=== PATIENT | female | born 1995 ===

== ENCOUNTER 2016-11-19 21:32 | Emergency (ER) | payer OTHER ==
[2016-11-19 21:38] VITALS: BP 124/61; PULSE 76; RESP 18; TEMP 98.7; O2SAT 100
--- NOTE | 2016-11-19 22:25 | ED PDOC ---
HPI: General Adult Time Seen by Provider: 11/19/16 21:49 Chief Complaint (Nursing): GI Problem Chief Complaint (Provider): Nausea, Poor Appetite History Per: Patient History/Exam Limitations: no limitations Onset/Duration Of Symptoms: Days (x3) Have you had recent travel within the past 21 days to any of the following countries: [place], [place], [place] or [place]?: No Severity: Moderate Additional Complaint(s): Brit Raines is a 21 year old female, with A1 (at age 16) with no pertinent past medical history, who presents to the ED on 11/19/16 with complaints of both moderate nausea and decreased appetite that she has experienced x3 days. Denies vaginal bleeding or any additional physical complaints at this time. Of note, when patient asked if she may be , she reports not having given it much thought. LMP is reported as of late September 2016 and, though patient notes that her periods are irregular at baseline, she admits that in hindsight she should have taken a home test prior to coming to the ED. PMD: non CPH Past Medical History Reviewed: Historical Data, Nursing Documentation, Vital Signs Vital Signs: Last Vital Signs Temp 98.7 F 11/19/16 21:35 Pulse 76 11/19/16 21:35 Resp 18 11/19/16 21:35 BP 124/61 11/19/16 21:35 Pulse Ox 100 11/19/16 22:48 - Medical History PMH: No Chronic Diseases - Surgical History Other surgeries: b/l ankle surgery - Family History Family History: States: Unknown Family Hx - Social History Current smoker - smoking cessation education provided: No Alcohol: Social Drugs: Cannabis - Home Medications Home Medications: Ambulatory Orders Medication Instructions Recorded Dicyclomine [Bentyl] 20 mg PO TID #30 tab 08/14/16 Ondansetron [Zofran] 4 mg PO Q8H #12 tab 08/14/16 - Allergies Allergies/Adverse Reactions: Allergies Allergy/AdvReac Type Severity Reaction Status Date / Time No Known Allergies Allergy Verified 08/14/16 03:55 Review of Systems Gastrointestinal: Positive for: Nausea, Other (decreased appetite) Genitourinary Female: Negative for: Vaginal Bleeding Physical Exam - Reviewed Nursing Documentation Reviewed: Yes Vital Signs Reviewed: Yes - Physical Exam Appears: Positive for: Non-toxic, No Acute Distress Head Exam: Positive for: ATRAUMATIC, NORMOCEPHALIC Skin: Positive for: Normal Color, Warm, Dry Eye Exam: Positive for: Normal appearance, PERRL ENT: Positive for: Normal ENT Inspection Cardiovascular/Chest: Positive for: Regular Rate, Rhythm. Negative for: Murmur Respiratory: Positive for: Normal Breath Sounds. Negative for: Respiratory Distress Gastrointestinal/Abdominal: Positive for: Normal Exam, Soft. Negative for: Tenderness Back: Positive for: Normal Inspection Neurologic/Psych: Positive for: Alert, Oriented - Laboratory Results Urine POC: Positive Urine dip results: Negative for: Leukocyte Esterase, Blood, Nitrate, Ketones, Glucose, Bilirubin, Protein - ECG O2 Sat by Pulse Oximetry: 100 (RA) Pulse Ox Interpretation: Normal Medical Decision Making Medical Decision Makin:49 Initial Impression: 21 year old female with nausea and decreased appetite; suspected Initial Plan: * Upreg * Udip Upreg is (+), patient has been advised of results. Udip is negative. 22:08 Patient is medically stable and requires no further evaluation/treatment in the ED at this time, will discharge home. Counseling provided regarding diagnosis, with patient reporting that she already has an existing appointment with her OB/ [facility] for next week. Instructed to follow up as scheduled. There is agreement to discharge plan, return for acute worsening of symptoms. Clinical Impression: early Scribe Attestation: Documented by Geovanna Ohara, acting as a scribe for Jeromy Capps MD. Provider Scribe Attestation: All medical record entries made by the Scribe were at my direction and personally dictated by me. I have reviewed the chart and agree that the record accurately reflects my personal performance of the history, physical exam, medical decision making, and the department course for this patient. I have also personally directed, reviewed, and agree with the discharge instructions and disposition. Disposition - Clinical Impression Clinical Impression: - Patient ED Disposition Is Patient to be Admitted: No Counseled Patient/Family Regarding: Studies Performed, Diagnosis, Need For Followup - Disposition [facility] Disposition: Routine/Home Disposition Time: 22:08 Condition: STABLE Instructions: Morning Sickness (ED), (ED)
== END 2016-11-19 22:49 | disposition home or self-care (01) ==
LOC: H.ER 21:32
DX: Z33.1 Pregnant state, incidental (principal); R11.0 Nausea

== ENCOUNTER 2016-12-01 20:08 | Emergency (ER) | payer OTHER ==
[2016-12-01 20:30] VITALS: BP 103/59; PULSE 50; RESP 18; TEMP 98; O2SAT 100
[2016-12-01] MEDS ORDERED: Sodium Chloride 0.9% 1,000 ML IV STA (21:09)
[2016-12-01] MEDS ORDERED: DiphenhydrAMINE 50 mg/ml Inj IV STA (21:09)
--- NOTE | 2016-12-01 21:21 | ED PDOC ---
HPI: Headache Time Seen by Provider: 12/01/16 20:53 Chief Complaint (Nursing): Headache Chief Complaint (Provider): headache History Per: Patient History/Exam Limitations: no limitations Onset/Duration Of Symptoms: Hrs (x 7 ) Current Symptoms Are (Timing): Still Present Additional Complaint(s): Brit Raines is a 21 year female, with a previous medical history of recurring migraines, who presents to the ED with complaints of a headache which started approximately 7 hours prior to arrival; further described as consistent with previous migraines. Patient reports one episode of non-bloody vomiting but otherwise denies any vision changes. She has medicated with Tylenol and Advil with no relief. Patient vomited x 1 at home prior to arrival and feels nauseous upon arrival. She denies any vision changes. Patient states this is not the worst headache of her life. Past Medical History Reviewed: Historical Data, Nursing Documentation, Vital Signs Vital Signs: Last Vital Signs Temp 98.0 F 12/01/16 20:28 Pulse 50 L 12/01/16 20:28 Resp 18 12/01/16 20:28 BP 103/59 L 12/01/16 20:28 Pulse Ox 100 12/01/16 20:28 - Medical History PMH: Migraine - Surgical History Other surgeries: bilateral ankle surgery, elective last week - Family History Family History: States: No Known Family Hx - Living Arrangements Living Arrangements: With Family - Social History Current smoker - smoking cessation education provided: No Alcohol: None Drugs: Cannabis - Home Medications Home Medications: Ambulatory Orders Medication Instructions Recorded Dicyclomine [Bentyl] 20 mg PO TID #30 tab 08/14/16 Ondansetron [Zofran] 4 mg PO Q8H #12 tab 08/14/16 Metoclopramide [Reglan] 10 mg PO Q6 PRN #20 tab 12/01/16 Naproxen [Naprosyn] 500 mg PO BID #20 tab 12/01/16 - Allergies Allergies/Adverse Reactions: Allergies Allergy/AdvReac Type Severity Reaction Status Date / Time No Known Allergies Allergy Verified 12/01/16 20:30 Review of Systems ROS Statement: Except As Marked, All Systems Reviewed And Found Negative Constitutional: Negative for: Fever Eyes: Negative for: Vision Change Cardiovascular: Negative for: Light Headedness Gastrointestinal: Positive for: Nausea, Vomiting. Negative for: Abdominal Pain Neurological: Positive for: Headache. Negative for: Weakness, Numbness, Confusion, Seizures, Altered Mental Status, Dizziness Physical Exam - Reviewed Nursing Documentation Reviewed: Yes Vital Signs Reviewed: Yes - Physical Exam Appears: Positive for: Well, Non-toxic, No Acute Distress Head Exam: Positive for: ATRAUMATIC, NORMAL INSPECTION Skin: Negative for: Rash Eye Exam: Positive for: Normal appearance, PERRL. Negative for: Nystagmus, Periorbital swelling, Periorbital tenderness, Conjunctival injection ENT: Positive for: Normal ENT Inspection Neck: Positive for: Painless ROM Cardiovascular/Chest: Positive for: Regular Rate, Rhythm Respiratory: Positive for: CNT, Normal Breath Sounds Extremity: Positive for: Normal ROM. Negative for: Pedal Edema Neurologic/Psych: Positive for: Alert, Oriented, Gait (steady) - Laboratory Results Urine POC: Positive (patient has elective about 5 days ago, false positive) - ECG O2 Sat by Pulse Oximetry: 100 (RA) Pulse Ox Interpretation: Normal Medical Decision Making Medical Decision Making: Impression: Migraine headache Initial Plan: * urine * toradol 30 mg IV * reglan 10 mg IV * benadryl 25 mg IV * IV NS 1,000 ml at 1,000 ml/hr * reevaluation False positive : patient had elective last week. Patient feels much better after medications were administered. Nausea and headache have resolved. Patient tolerated water in ED with no further emesis. Prescriptions given for Naprosyn and Reglan. Patient was advised to follow-up in one to 2 days with primary care doctor. Scribe Attestation: Documented by Angelia Allan, acting as a scribe for Diya Boyle PA-C. Provider Scribe Attestation: All medical record entries made by the Scribe were at my direction and personally dictated by me. I have reviewed the chart and agree that the record accurately reflects my personal performance of the history, physical exam, medical decision making, and the department course for this patient. I have also personally directed, reviewed, and agree with the discharge instructions and disposition. Disposition - Clinical Impression Clinical Impression: Migraine - Patient ED Disposition Is Patient to be Admitted: No - Disposition Referrals: Jim Jaime MD, PhD [Primary Care Provider] - Disposition: Routine/Home Disposition Time: 23:16 Condition: IMPROVED Additional Instructions: Rest and drink plenty of fluids. Take prescription meds as directed as needed for headache. Follow-up with primary doctor in 1-2 days. Prescriptions: Metoclopramide [Reglan] 10 mg PO Q6 PRN #20 tab PRN Reason: Nausea/Vomiting Naproxen [Naprosyn] 500 mg PO BID #20 tab Instructions: Migraine Headache (ED)
[2016-12-01] MEDS ORDERED: DiphenhydrAMINE 50 mg/ml Inj ONE (22:02)
== END 2016-12-01 23:36 | disposition home or self-care (01) ==
LOC: H.ER 20:08
DX: G43.909 Migraine, unspecified, not intractable, without status migrainosus (principal); R11.10 Vomiting, unspecified

== ENCOUNTER 2017-01-15 02:22 | Emergency (ER) | payer OTHER ==
[2017-01-15] MEDS ORDERED: Sodium Chloride 0.9% 1,000 ML IV STA (02:45)
[2017-01-15] MEDS ORDERED: Dexamethasone 10 MG in Sodium Chloride 0.9% 50 ML IV STA (02:45)
[2017-01-15 03:12] LABS: BASO % 0.2 % (0.0-2.0); EOS # 0.1 K/uL (0.0-0.7); EOS % 0.4 % (0.0-4.0); HEMATOCRIT 35.2 % (34.0-47.0); LYMPH # 1.1 K/uL (1.0-4.3); LYMPH % 7.4 % (20.0-40.0); MEAN CELL VOLUME 87.9 fl (81.0-99.0); MEAN CORPUSCULAR HEMOGLOBIN 29.8 pg (27.0-31.0); MEAN CORPUSCULAR HGB CONC 33.9 g/dL (33.0-37.0); MEAN PLATELET VOLUME 8.8 fl (7.2-11.7); MONO # 1.3 K/uL (0.0-0.8); MONO % 8.6 % (0.0-10.0); NEUT # 12.4 K/uL (1.8-7.0); NEUT % 83.4 % (50.0-75.0); PLATELET COUNT 219 K/uL (130-400); RED CELL DISTRIBUTION WIDTH 12.8 % (11.5-14.5); WHITE BLOOD COUNT 14.9 K/uL (4.8-10.8)
[2017-01-15 03:29] LABS: ALB/GLOB RATIO 1.5 (1.0-2.1); ALKALINE PHOSPHATASE 57 U/L (38-126); ALT/SGPT 25 U/L (9-52); AST/SGOT 28 U/L (14-36); BILIRUBIN,TOTAL 0.6 mg/dl (0.2-1.3); BLOOD UREA NITROGEN 12 mg/dl (7-17); CALCIUM 9.5 mg/dL (8.4-10.2); CARBON DIOXIDE 27 mmol/L (22-30); CHLORIDE 101 mmol/L (98-107); GFR AFRICAN-AMERICAN > 60; GLUCOSE,RANDOM 90 mg/dL (65-105); POTASSIUM 3.8 MMOL/L (3.6-5.0); SODIUM 139 mmol/l (132-148)
[2017-01-15 03:30] LABS: RBC URINE 9 /hpf (0-3); URINE BILIRUBIN NEGATIVE (NEGATIVE); URINE BLOOD SMALL (NEGATIVE); URINE COLOR YELLOW (YELLOW); URINE GLUCOSE (UA) NEG (Normal); URINE KETONE NEGATIVE (NEGATIVE); URINE LEUKOCYTE ESTERASE NEG Leu/uL (Negative); URINE PROTEIN NEGATIVE (NEGATIVE); URINE UROBILINOGEN 0.2-1.0 mg/dL (0.2-1.0); WBC URINE 2 /hpf (0-5)
--- NOTE | 2017-01-15 03:32 | ED PDOC ---
HPI: General Adult Time Seen by Provider: 01/15/17 02:31 Chief Complaint (Nursing): ENT Problem Chief Complaint (Provider): sore throat History Per: Patient History/Exam Limitations: no limitations Onset/Duration Of Symptoms: Days (1) Have you had recent travel within the past 21 days to any of the following countries: [place], [place], [place] or [place]?: No Current Symptoms Are (Timing): Still Present Additional Complaint(s): 21yo female with PMHx including migraines presents to the ED with c/o sore throat x 1 day. Patient reports worsening sore throat and trouble swallowing with fever and chills. Took theraflu and tylenol with little to no relief. Denies v/d, abdominal pain, cough, SOB. Pain is 8/10 and worse when swallowing or eating. Past Medical History Reviewed: Historical Data, Nursing Documentation, Vital Signs Vital Signs: Last Vital Signs Temp 100.0 F H 01/15/17 05:31 Pulse 88 01/15/17 06:02 Resp 16 01/15/17 06:02 BP 115/72 01/15/17 06:02 Pulse Ox 99 01/15/17 06:02 - Medical History PMH: Migraine - Surgical History Other surgeries: ankle surgery for congenital ankle issue - Family History Family History: States: No Known Family Hx - Social History Current smoker - smoking cessation education provided: No Alcohol: None Drugs: Denies - Home Medications Home Medications: Ambulatory Orders Medication Instructions Recorded Clindamycin [Cleocin] 300 mg PO Q6 #40 cap 01/15/17 predniSONE [predniSONE Tab] 60 mg PO QAM #12 tab 01/15/17 - Allergies Allergies/Adverse Reactions: Allergies Allergy/AdvReac Type Severity Reaction Status Date / Time No Known Allergies Allergy Verified 12/01/16 20:30 Review of Systems ROS Statement: Except As Marked, All Systems Reviewed And Found Negative Constitutional: Positive for: Fever, Chills ENT: Positive for: Throat Pain, Other (trouble swallowing ) Respiratory: Negative for: Cough, Shortness of Breath Gastrointestinal: Negative for: Vomiting, Abdominal Pain, Diarrhea Physical Exam - Reviewed Nursing Documentation Reviewed: Yes Vital Signs Reviewed: Yes - Physical Exam Appears: Positive for: Well, No Acute Distress Head Exam: Positive for: ATRAUMATIC, NORMAL INSPECTION, NORMOCEPHALIC Skin: Positive for: Normal Color, Warm, Dry Eye Exam: Positive for: Normal appearance, EOMI, PERRL ENT: Positive for: Tonsillar Exudate (b/l ), Tonsillar Swelling (b/l 3+ tonsils ) Neck: Positive for: Normal, Painless ROM, Supple Cardiovascular/Chest: Positive for: Regular Rate, Rhythm. Negative for: Murmur , Tachycardia Respiratory: Positive for: Normal Breath Sounds. Negative for: Wheezing, Respiratory Distress Gastrointestinal/Abdominal: Positive for: Normal Exam, Soft. Negative for: Tenderness Back: Positive for: Normal Inspection Extremity: Positive for: Normal ROM. Negative for: Deformity, Swelling Lymphatic: Positive for: Adenopathy (b/l anterior cervical adenopathy ) Neurologic/Psych: Positive for: Alert, Oriented. Negative for: Motor/Sensory Deficits - Laboratory Results Result Diagrams: 01/15/17 02:52 01/15/17 02:52 - ECG O2 Sat by Pulse Oximetry: 98 Pulse Ox Interpretation: Normal (RA) Medical Decision Making Medical Decision Makin: Impression: 21yo female w/ acute tonsillitis Plan: Labs Toradol 10mg IVP, Decadron 10mg IV, IVF mono and strep test blood and throat culture UA CT neck reassess 0542: CT neck impression: 1. Tonsillitis without definite peritonsillar abscess. 0600: Labs reviewed, show no clinically significant findings with exception of elevated WBC count. Patient reports improvement in symptoms and is stable for discharge. Dx: acute tonsillitis Rx: clindamycin, prednisone Improved F/U PCP 1-2 days Scribe Attestation: Documented by Oliver aDy acting as a scribe for Jeromy Capps MD. Provider Scribe Attestation: All medical record entries made by the Scribe were at my direction and personally dictated by me. I have reviewed the chart and agree that the record accurately reflects my personal performance of the history, physical exam, medical decision making, and the department course for this patient. I have also personally directed, reviewed, and agree with the discharge instructions and disposition. Disposition - Clinical Impression Clinical Impression: Tonsillitis - Patient ED Disposition Is Patient to be Admitted: No Counseled Patient/Family Regarding: Studies Performed, Diagnosis, Need For Followup, Rx Given - Disposition Disposition: Routine/Home Disposition Time: 06:00 Condition: IMPROVED Prescriptions: Clindamycin [Cleocin] 300 mg PO Q6 #40 cap predniSONE [predniSONE Tab] 60 mg PO QAM #12 tab Instructions: Tonsillitis (ED)
[2017-01-15] MEDS ORDERED: Clindamycin 600 MG in Sodium Chloride 0.9% 100 ML IVPB STA (04:08)
[2017-01-15] MEDS ORDERED: Iohexol 300 100 ML IJ ONE (04:49)
[2017-01-15] MEDS ORDERED: Sodium Chloride 0.9% 50 ML IV ONE (04:49)
[2017-01-15 05:21] LABS: NEUTROPHIL 82 % (42-75); TOTAL CELLS COUNTED 100
[2017-01-15 05:23] LABS: STOMATOCYTES SLIGHT
[2017-01-15 05:31] VITALS: RESP 16; TEMP 100
--- NOTE | 2017-01-15 05:42 | CT ---
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 This CT exam was performed using one or more of the following dose reduction techniques: automated exposure control, adjustment of the mA and/or kV according to patient size, and/or use of iterative reconstruction technique. Coronal and sagittal reformatted images were created and reviewed. CONTRAST: 85 mL of [id number] administered intravenously. COMPARISON: No relevant prior studies available. FINDINGS: Nasopharynx: Unremarkable. Oropharynx: Enlarged palatine tonsils with surrounding edema. No discrete peripherally enhancing collection. Hypopharynx: Unremarkable. Larynx: Unremarkable. Normal epiglottis. Trachea: Unremarkable. Retropharyngeal space: Unremarkable. Submandibular/parotid glands: Unremarkable. Glands are normal in size. Thyroid: Unremarkable. No enlarged or calcified nodules. Bones/joints: No acute fracture. Soft tissues: Unremarkable. Vasculature: No acute findings. Lymph nodes: Shotty cervical lymph nodes, likely reactive. Lung apices: Unremarkable as visualized. IMPRESSION: 1. Tonsillitis without definite peritonsillar abscess. 2. Incidental/non-acute findings are described above.
[2017-01-15 06:03] VITALS: BP 115/72; PULSE 88
[2017-01-15 06:11] VITALS: O2SAT 98
== END 2017-01-15 06:06 | disposition home or self-care (01) ==
LOC: H.ER 02:22
DX: J02.0 Streptococcal pharyngitis (principal); R50.9 Fever, unspecified

== ENCOUNTER 2017-02-22 10:43 | Emergency (ER) | payer OTHER ==
[2017-02-22 10:53] VITALS: RESP 18
[2017-02-22] MEDS ORDERED: Sodium Chloride 0.9% 1,000 ML IV STA (11:03)
--- NOTE | 2017-02-22 11:05 | ED PDOC ---
HPI: Abdomen Time Seen by Provider: 02/22/17 10:55 Chief Complaint (Nursing): GI Problem Chief Complaint (Provider): "Hangover" History Per: Patient Additional Complaint(s): Pt is a 22 yo female, no PMH, presents to ED with complaints of having "a horrible hangover." Pt reports that yesterday was her birthday and she went out drinking, too much. Pt has been vomiting since last night and then had diarrhea x 2 this morning. Past Medical History Reviewed: Nursing Documentation, Vital Signs Vital Signs: Last Vital Signs Temp 97.9 F 02/22/17 11:01 Pulse 78 02/22/17 11:01 Resp 18 02/22/17 11:01 BP 117/76 02/22/17 11:01 Pulse Ox 95 02/22/17 11:05 - Medical History PMH: Migraine - Surgical History Surgical History: No Surg Hx - Family History Family History: States: Unknown Family Hx - Living Arrangements Living Arrangements: With Family - Social History Current smoker - smoking cessation education provided: No Alcohol: Social Drugs: Cannabis - Home Medications Home Medications: Ambulatory Orders Medication Instructions Recorded Clindamycin [Cleocin] 300 mg PO Q6 #40 cap 01/15/17 predniSONE [predniSONE Tab] 60 mg PO QAM #12 tab 01/15/17 - Allergies Allergies/Adverse Reactions: Allergies Allergy/AdvReac Type Severity Reaction Status Date / Time No Known Allergies Allergy Verified 02/22/17 11:01 Review of Systems ROS Statement: Except As Marked, All Systems Reviewed And Found Negative Gastrointestinal: Positive for: Nausea, Vomiting, Abdominal Pain, Diarrhea Physical Exam - Reviewed Nursing Documentation Reviewed: Yes Vital Signs Reviewed: Yes - Physical Exam Appears: Positive for: Well, Non-toxic, No Acute Distress Head Exam: Positive for: ATRAUMATIC, NORMAL INSPECTION, NORMOCEPHALIC Skin: Positive for: Normal Color, Warm, DRY Eye Exam: Positive for: EOMI, Normal appearance, PERRL ENT: Positive for: Normal ENT Inspection Neck: Positive for: Normal, Painless ROM Cardiovascular/Chest: Positive for: Regular Rate, Rhythm Respiratory: Positive for: CNT, Normal Breath Sounds Gastrointestinal/Abdominal: Positive for: Normal Exam, Bowel Sounds, Soft. Negative for: Tenderness Back: Positive for: Normal Inspection Extremity: Positive for: Normal ROM Neurologic/Psych: Positive for: Alert, Oriented - Laboratory Results Result Diagrams: 02/22/17 11:30 02/22/17 11:30 - ECG O2 Sat by Pulse Oximetry: 95 Medical Decision Making Medical Decision Making: IV access established and treatment initiated with IVF, Toradol and Zofran labs resulted and reviewed with Pt who demonstrated full understanding and reported feeling better on re-eval. Stable for discharge at this time Disposition - Clinical Impression Clinical Impression: Alcohol use, Hangover effect - Patient ED Disposition Is Patient to be Admitted: No - Disposition Disposition: Routine/Home Disposition Time: 12:50 Condition: STABLE Instructions: Alcohol Intoxication (ED) - POA Present On Arrival: None
[2017-02-22 11:53] LABS: BASO # 0.1 K/uL (0.0-0.2); BASO % 0.7 % (0.0-2.0); EOS % 0.2 % (0.0-4.0); HEMOGLOBIN 12.8 g/dL (12.0-16.0); LYMPH # 1.1 K/uL (1.0-4.3); LYMPH % 12.3 % (20.0-40.0); MEAN CELL VOLUME 89.7 fl (81.0-99.0); MEAN CORPUSCULAR HGB CONC 33.5 g/dL (33.0-37.0); MEAN PLATELET VOLUME 8.6 fl (7.2-11.7); MONO # 0.4 K/uL (0.0-0.8); NEUT # 7.6 K/uL (1.8-7.0); NEUT % 82.8 % (50.0-75.0); NRBC % 0.1 % (0.0-0.0); RBC 4.26 Mil/uL (3.80-5.20); RED CELL DISTRIBUTION WIDTH 13.6 % (11.5-14.5); WHITE BLOOD COUNT 9.2 K/uL (4.8-10.8)
[2017-02-22 12:03] LABS: ALB/GLOB RATIO 1.3 (1.0-2.1); ALBUMIN 4.7 g/dL (3.5-5.0); ALT/SGPT 38 U/L (9-52); AST/SGOT 29 U/L (14-36); BLOOD UREA NITROGEN 6 mg/dl (7-17); CALCIUM 9.1 mg/dL (8.4-10.2); GFR AFRICAN-AMERICAN > 60; GFR NON-AFRICAN AMERICAN > 60
[2017-02-22 12:55] VITALS: BP 107/56; PULSE 80; TEMP 98; O2SAT 100
== END 2017-02-22 12:56 | disposition home or self-care (01) ==
LOC: H.ER 10:43
DX: F10.129 Alcohol abuse with intoxication, unspecified (principal); R11.10 Vomiting, unspecified; R19.7 Diarrhea, unspecified

== ENCOUNTER 2017-06-21 11:42 | Emergency (ER) | payer OTHER ==
[2017-06-21 11:48] VITALS: TEMP 97.8; O2SAT 100
[2017-06-21 11:49] VITALS: BMI 22.3
[2017-06-21] MEDS ORDERED: Sodium Chloride 0.9% 1,000 ML IV STA (12:25)
[2017-06-21 12:27] VITALS: PULSE 60
--- NOTE | 2017-06-21 12:29 | ED PDOC ---
Syncope/Near Syncope/Dizziness Time Seen by Provider: 06/21/17 12:19 Chief Complaint (Nursing): Syncope History Per: Patient Onset/Duration Of Symptoms: Days (1) Current Symptoms Are (Timing): Still Present Additional Complaint(s): Syncopal episode yesterday, remebers waking up on bathroom floor yesterday. Has had dizziness and feeling weak and tired since episode. Does not remeber if she hit head. Denies chest pain palpitations. Past Medical History Vital Signs: Last Vital Signs Temp 97.8 F 06/21/17 11:47 Pulse 60 06/21/17 12:20 Resp 16 06/21/17 12:20 BP 113/62 06/21/17 12:20 Pulse Ox 100 06/21/17 12:20 - Medical History PMH: Bipolar Disorder, Migraine Denies: Chronic Kidney Disease - Family History Family History: States: Unknown Family Hx - Home Medications Home Medications: Ambulatory Orders Medication Instructions Recorded Clindamycin [Cleocin] 300 mg PO Q6 #40 cap 01/15/17 predniSONE [predniSONE Tab] 60 mg PO QAM #12 tab 01/15/17 - Allergies Allergies/Adverse Reactions: Allergies Allergy/AdvReac Type Severity Reaction Status Date / Time No Known Allergies Allergy Verified 02/22/17 11:01 Review of Systems ROS Statement: Except As Marked, All Systems Reviewed And Found Negative Neurological: Positive for: Headache, Dizziness Physical Exam - Reviewed Nursing Documentation Reviewed: Yes Vital Signs Reviewed: Yes - Physical Exam Appears: Positive for: Non-toxic, No Acute Distress Head Exam: Positive for: ATRAUMATIC, NORMAL INSPECTION, NORMOCEPHALIC Skin: Positive for: Normal Color, Warm, DRY Eye Exam: Positive for: EOMI, Normal appearance, PERRL ENT: Positive for: Normal ENT Inspection Neck: Positive for: Normal, Painless ROM Cardiovascular/Chest: Positive for: Regular Rate, Rhythm Respiratory: Positive for: CNT, Normal Breath Sounds Gastrointestinal/Abdominal: Positive for: Normal Exam, Bowel Sounds, Soft Back: Positive for: Normal Inspection Extremity: Positive for: Normal ROM Neurologic/Psych: Positive for: Alert, Oriented. Negative for: Motor/Sensory Deficits - Laboratory Results Result Diagrams: 06/21/17 12:43 06/21/17 12:43 - ECG O2 Sat by Pulse Oximetry: 100 Disposition - Clinical Impression Clinical Impression: Syncope, Head injury - Patient ED Disposition Is Patient to be Admitted: No Counseled Patient/Family Regarding: Studies Performed, Diagnosis, Need For Followup - Disposition Referrals: Phani Gonsalves MD [Medical Doctor] - Disposition: Routine/Home Disposition Time: 14:11 Condition: FAIR Instructions: Concussion (ED), Head Injury (ED) Forms: [employer] (I[place]ic)
[2017-06-21 12:52] LABS: BASO % 0.6 % (0.0-2.0); EOS # 0.1 K/uL (0.0-0.7); EOS % 1.2 % (0.0-4.0); HEMATOCRIT 37.6 % (34.0-47.0); LYMPH # 2.1 K/uL (1.0-4.3); LYMPH % 26.4 % (20.0-40.0); MEAN CELL VOLUME 88.9 fl (81.0-99.0); MEAN CORPUSCULAR HGB CONC 33.7 g/dL (33.0-37.0); MEAN PLATELET VOLUME 8.5 fl (7.2-11.7); MONO # 0.8 K/uL (0.0-0.8); MONO % 9.7 % (0.0-10.0); NEUT # 4.9 K/uL (1.8-7.0); NEUT % 62.1 % (50.0-75.0); RED CELL DISTRIBUTION WIDTH 13.2 % (11.5-14.5); WHITE BLOOD COUNT 7.8 K/uL (4.8-10.8)
[2017-06-21 13:11] LABS: ALB/GLOB RATIO 1.4 (1.0-2.1); ALKALINE PHOSPHATASE 51 U/L (38-126); ALT/SGPT 30 U/L (9-52); AST/SGOT 27 U/L (14-36); BILIRUBIN,TOTAL 0.7 mg/dl (0.2-1.3); BLOOD UREA NITROGEN 12 mg/dl (7-17); CALCIUM 9.4 mg/dL (8.4-10.2); CARBON DIOXIDE 25 mmol/L (22-30); CHLORIDE 103 mmol/L (98-107); GFR AFRICAN-AMERICAN > 60; GLUCOSE,RANDOM 88 mg/dL (65-105); SODIUM 138 mmol/l (132-148); TOTAL PROTEIN 8.1 G/DL (6.3-8.2)
--- NOTE | 2017-06-21 14:09 | CT ---
PROCEDURE: CT HEAD WITHOUT CONTRAST. HISTORY: Syncope COMPARISON: None available. TECHNIQUE: Axial computed tomography images were obtained through the head/brain without intravenous contrast. Radiation dose: Total exam DLP = 841.06 mGy-cm. This CT exam was performed using one or more of the following dose reduction techniques: Automated exposure control, adjustment of the mA and/or kV according to patient size, and/or use of iterative reconstruction technique. FINDINGS: HEMORRHAGE: No intracranial hemorrhage. BRAIN: Denny-white matter differentiation is preserved. There is no mass, mass effect or abnormal extra-axial fluid collection. There is no territorial infarction. VENTRICLES: The ventricles are normal in size, shape and configuration. There is a cavum septum pellucidum. CALVARIUM: There is no calvarial fracture or extracranial soft tissue swelling. PARANASAL SINUSES: Predominantly clear. MASTOID AIR CELLS: Predominantly clear. OTHER FINDINGS: None. IMPRESSION: No acute intracranial abnormality.
[2017-06-21 15:44] VITALS: BP 103/79; RESP 14
--- NOTE | 2017-06-22 11:50 | CARD ---
APPROVED REPORT EKG Measurement Heart [id number] <Conclusion> Sinus bradycardia with sinus arrhythmia Otherwise normal ECG
== END 2017-06-21 14:20 | disposition home or self-care (01) ==
LOC: H.ER 11:42
DX: R55 Syncope and collapse (principal); S09.90XA Unspecified injury of head, initial encounter; W19.XXXA Unspecified fall, initial encounter; Y92.002 Bathroom of unspecified non-institutional (private) residence as the place of occurrence of the external cause; F31.9 Bipolar disorder, unspecified
CPT/HCPCS: 70450; 80053; 81025; 85025; 93005; 99282; J7040

== ENCOUNTER 2017-08-21 13:17 | Emergency (ER) | payer OTHER ==
[2017-08-21 13:17] VITALS: BMI 22.3
[2017-08-21 13:22] VITALS: TEMP 98
[2017-08-21] MEDS ORDERED: Sodium Chloride 0.9% 1,000 ML IV STA (13:41)
--- NOTE | 2017-08-21 13:54 | ED PDOC ---
HPI: Abdomen Time Seen by Provider: 08/21/17 13:25 Chief Complaint (Nursing): Abdominal Pain Chief Complaint (Provider): Abdominal Pain History Per: Patient History/Exam Limitations: no limitations Onset/Duration Of Symptoms: Hrs (x7 hours) Current Symptoms Are (Timing): Still Present Additional Complaint(s): 22 y/o female with past medical history of migraine and bipolar disorder presents to the ED complaining of vomiting ,diarrhea and headache since she woke up around 8am. Patient reports that she vomited about 6 times since morning. She took Advil with no relief. Patient states that she went out yesterday with friends for dinner and had 2 drinks, which is not unusual for her. Last menstrual period was couple of days ago. PMD: Jim Jaime MD Past Medical History Reviewed: Historical Data, Nursing Documentation, Vital Signs Vital Signs: Last Vital Signs Temp 98.0 F 08/21/17 13:20 Pulse 71 08/21/17 13:20 Resp 16 08/21/17 13:20 BP 111/71 08/21/17 13:20 Pulse Ox 100 08/21/17 14:09 - Medical History PMH: Bipolar Disorder, Migraine Denies: Chronic Kidney Disease - Surgical History Surgical History: No Surg Hx - Family History Family History: States: Unknown Family Hx - Social History Current smoker - smoking cessation education provided: Yes Alcohol: Other (yes) Drugs: Denies - Home Medications Home Medications: Ambulatory Orders Medication Instructions Recorded Clindamycin [Cleocin] 300 mg PO Q6 #40 cap 01/15/17 predniSONE [predniSONE Tab] 60 mg PO QAM #12 tab 01/15/17 Ondansetron [Zofran] 4 mg PO Q8H #9 tab 08/21/17 - Allergies Allergies/Adverse Reactions: Allergies Allergy/AdvReac Type Severity Reaction Status Date / Time No Known Allergies Allergy Verified 02/22/17 11:01 Review of Systems ROS Statement: Except As Marked, All Systems Reviewed And Found Negative (As per HPI, otehrwise negative) Gastrointestinal: Positive for: Vomiting, Diarrhea Neurological: Positive for: Headache Physical Exam - Reviewed Nursing Documentation Reviewed: Yes Vital Signs Reviewed: Yes - Physical Exam Appears: Positive for: Well, Non-toxic, No Acute Distress Head Exam: Positive for: ATRAUMATIC, NORMAL INSPECTION, NORMOCEPHALIC Skin: Positive for: Normal Color, Warm, Dry Eye Exam: Positive for: EOMI, Normal appearance, PERRL ENT: Positive for: Normal ENT Inspection Neck: Positive for: Normal, Painless ROM, Supple Cardiovascular/Chest: Positive for: Regular Rate, Rhythm. Negative for: Murmur Respiratory: Positive for: Normal Breath Sounds. Negative for: Accessory Muscle Use, Respiratory Distress Gastrointestinal/Abdominal: Positive for: Tenderness (mild tenderness in the upper area) Back: Positive for: Normal Inspection Extremity: Positive for: Normal ROM. Negative for: Deformity Neurologic/Psych: Positive for: Alert, Oriented (x3) - Laboratory Results Result Diagrams: 08/21/17 14:20 08/21/17 14:20 Urine dip results: Negative for: Leukocyte Esterase, Blood, Nitrate, Ketones, Glucose, Bilirubin, Protein - ECG O2 Sat by Pulse Oximetry: 100 (RA) Pulse Ox Interpretation: Normal - Progress Re-evaluation Time: 14:46 Condition: Improved Medical Decision Making Medical Decision Making: Time: 13:41 Initial Impression: Viral syndrome Differential Diagnosis: gastroenteritis, migraine headache with nausea and vomiting Plan: CMP Urine dipstick Urine CBC w/ differential Pepcid 20mg IVP Toradol 30mg IVP Sodium chloride 1L IV Ondansetron 4mg IVP IV insertion Reevaluation Scribe Attestation: Documented by Bob Roman acting as a scribe for Marquita Reyes MD. Scribe Attestation: All medical record entries made by the Scribe were at my direction and personally dictated by me. I have reviewed the chart and agree that the record accurately reflects my personal performance of the history, physical exam, medical decision making, and the department course for this patient. I have also personally directed, reviewed, and agree with the discharge instructions and disposition. Disposition - Clinical Impression Clinical Impression: Viral syndrome - Patient ED Disposition Is Patient to be Admitted: No Doctor Will See Patient In The: Office - Disposition Disposition: Routine/Home Disposition Time: 14:48 Condition: IMPROVED Prescriptions: Ondansetron [Zofran] 4 mg PO Q8H #9 tab Instructions: Gastroenteritis (ED) Forms: [facility] ([place]), [facility] ED School/Work Excuse - POA Present On Arrival: None
[2017-08-21 14:26] LABS: BASO # 0.1 K/uL (0.0-0.2); BASO % 0.7 % (0.0-2.0); EOS # 0.1 K/uL (0.0-0.7); EOS % 1.2 % (0.0-4.0); HEMOGLOBIN 13.4 g/dL (12.0-16.0); LYMPH # 1.5 K/uL (1.0-4.3); LYMPH % 15.5 % (20.0-40.0); MEAN CORPUSCULAR HEMOGLOBIN 30.2 pg (27.0-31.0); MEAN CORPUSCULAR HGB CONC 33.5 g/dL (33.0-37.0); MEAN PLATELET VOLUME 8.4 fl (7.2-11.7); MONO # 0.7 K/uL (0.0-0.8); MONO % 7.5 % (0.0-10.0); NEUT # 7.3 K/uL (1.8-7.0); NEUT % 75.1 % (50.0-75.0); RBC 4.45 Mil/uL (3.80-5.20); RED CELL DISTRIBUTION WIDTH 12.5 % (11.5-14.5); WHITE BLOOD COUNT 9.7 K/uL (4.8-10.8)
[2017-08-21 14:45] LABS: ALBUMIN 4.8 g/dL (3.5-5.0); ALT/SGPT 35 U/L (9-52); AST/SGOT 32 U/L (14-36); BLOOD UREA NITROGEN 10 mg/dl (7-17); CALCIUM 9.6 mg/dL (8.4-10.2); GFR AFRICAN-AMERICAN > 60; GFR NON-AFRICAN AMERICAN > 60
[2017-08-21 14:50] LABS: ALB/GLOB RATIO 1.3 (1.0-2.1)
[2017-08-21 15:15] VITALS: BP 121/75; PULSE 79; RESP 14; O2SAT 98
== END 2017-08-21 15:15 | disposition home or self-care (01) ==
LOC: H.ER 13:17
DX: B34.9 Viral infection, unspecified (principal); F17.200 Nicotine dependence, unspecified, uncomplicated; Z86.59 Personal history of other mental and behavioral disorders
CPT/HCPCS: 80053; 81025; 85025; 96374; 96375; 99284; J1885; J2405; J7040

== ENCOUNTER 2017-09-18 00:30 | Emergency (ER) | payer OTHER ==
[2017-09-18 00:30] VITALS: BMI 22.3
--- NOTE | 2017-09-18 00:54 | ED PDOC ---
HPI: General Adult Time Seen by Provider: 09/18/17 00:53 Chief Complaint (Provider): headache History Per: Patient Additional Complaint(s): 22 year old female with history of migraine headaches presents with migraine that started earlier this afternoon. Patient took Advil and then took a nap and woke up with worsening headache. She has been vomiting for the past few hours and is unable to keep down any liquids or solids. Patient states she gets migraines like this approximately 2-3 times per month. She normally takes Excedrin and Advil which helps but today advil did not help. Patient rates current headache as an 8 out of 10. She states this is not the worst headache of her life and today's headache is typical of her usual migraines. Past Medical History Reviewed: Historical Data, Nursing Documentation, Vital Signs Vital Signs: Last Vital Signs Temp 97.8 F 09/18/17 00:55 Pulse 64 09/18/17 00:55 Resp 16 09/18/17 00:55 BP 130/72 09/18/17 00:55 Pulse Ox 99 09/18/17 01:18 - Medical History PMH: Bipolar Disorder, Migraine - Family History Family History: States: No Known Family Hx - Living Arrangements Living Arrangements: With Family - Social History Current smoker - smoking cessation education provided: No Alcohol: None Drugs: Cannabis - Home Medications Home Medications: Ambulatory Orders Medication Instructions Recorded Clindamycin [Cleocin] 300 mg PO Q6 #40 cap 01/15/17 predniSONE [predniSONE Tab] 60 mg PO QAM #12 tab 01/15/17 Ondansetron [Zofran] 4 mg PO Q8H #9 tab 08/21/17 Metoclopramide [Reglan] 10 mg PO Q6 PRN #20 tab 09/18/17 Naproxen [Naprosyn] 500 mg PO BID #20 tab 09/18/17 - Allergies Allergies/Adverse Reactions: Allergies Allergy/AdvReac Type Severity Reaction Status Date / Time No Known Allergies Allergy Verified 02/22/17 11:01 Review of Systems ROS Statement: Except As Marked, All Systems Reviewed And Found Negative Constitutional: Negative for: Fever, Chills ENT: Positive for: Nose Congestion Cardiovascular: Negative for: Chest Pain Respiratory: Negative for: Cough Gastrointestinal: Positive for: Nausea, Vomiting. Negative for: Abdominal Pain , Diarrhea Neurological: Positive for: Headache. Negative for: Dizziness Physical Exam - Reviewed Nursing Documentation Reviewed: Yes Vital Signs Reviewed: Yes - Physical Exam Appears: Positive for: Well, Non-toxic, No Acute Distress Skin: Negative for: Rash Eye Exam: Positive for: Normal appearance ENT: Positive for: Nasal Congestion. Negative for: Pharyngeal Erythema Neck: Positive for: Normal Cardiovascular/Chest: Positive for: Regular Rate, Rhythm Respiratory: Positive for: Normal Breath Sounds Gastrointestinal/Abdominal: Positive for: Soft. Negative for: Tenderness, Distended, Guarding, Rebound Extremity: Positive for: Normal ROM. Negative for: Pedal Edema Neurologic/Psych: Positive for: Alert, Oriented - Laboratory Results Result Diagrams: 09/18/17 01:50 09/18/17 01:50 - ECG O2 Sat by Pulse Oximetry: 99 Pulse Ox Interpretation: Normal Medical Decision Making Medical Decision Makin22 year old with migraine headache Plan: CBC CMP test IVF IV reglan PO tylenol IVF IV toradol 3:00 am: Patient states pain and nausea have resolved completely. She states she feels much better. Patient is now tolerating water and juice with no further emesis. Prescriptions provided for Naprosyn and Reglan. Patient was advised to drink plenty of fluids and follow up with primary doctor in 2-3 days. Disposition - Clinical Impression Clinical Impression: Migraine - Patient ED Disposition Is Patient to be Admitted: No Counseled Patient/Family Regarding: Studies Performed, Diagnosis, Need For Followup, Rx Given - Disposition Referrals: [facility] [Outside] Disposition: Routine/Home Disposition Time: 03:00 Condition: IMPROVED Additional Instructions: Take prescription medications as directed as needed. Rest and drink plenty of fluids. Follow-up with clinic or primary doctor in 2-3 days. Prescriptions: Metoclopramide [Reglan] 10 mg PO Q6 PRN #20 tab PRN Reason: Nausea/Vomiting Naproxen [Naprosyn] 500 mg PO BID #20 tab Instructions: Migraine Headache (ED) Results - Lab Results Lab Results: 09/18/17 09/18/17 01:50 01:50 WBC 13.0 H RBC 4.27 Hgb 12.4 Hct 38.3 MCV 89.8 MCH 29.1 MCHC 32.4 L RDW 12.7 Plt Count 266 MPV 8.7 Neut % (Auto) 74.3 Lymph % (Auto) 15.0 L [place] % (Auto) 9.0 Eos % (Auto) 1.3 Baso % (Auto) 0.4 Neut # (Auto) 9.7 H Lymph # (Auto) 2.0 [place] # (Auto) 1.2 H Eos # (Auto) 0.2 Baso # (Auto) 0.1 Sodium 145 Potassium 4.1 Chloride 101 Carbon Dioxide 28 Anion Gap 20 BUN 11 Creatinine 0.5 L Est GFR ( Amer) > 60 Est GFR (Non-Af Amer) > 60 Random Glucose 106 H Calcium 9.5 Total Bilirubin 0.2 AST 24 ALT 21 Alkaline Phosphatase 57 Total Protein 8.5 H Albumin 4.6 Globulin 3.9 Albumin/Globulin Ratio 1.2
[2017-09-18 00:57] VITALS: BP 130/72; PULSE 64; RESP 16; TEMP 97.8; O2SAT 99
[2017-09-18] MEDS ORDERED: Sodium Chloride 0.9% 1,000 ML IV STA (01:16)
[2017-09-18 02:16] LABS: BASO # 0.1 K/uL (0.0-0.2); BASO % 0.4 % (0.0-2.0); EOS # 0.2 K/uL (0.0-0.7); EOS % 1.3 % (0.0-4.0); HEMOGLOBIN 12.4 g/dL (12.0-16.0); MEAN CELL VOLUME 89.8 fl (81.0-99.0); MEAN CORPUSCULAR HEMOGLOBIN 29.1 pg (27.0-31.0); MEAN CORPUSCULAR HGB CONC 32.4 g/dL (33.0-37.0); MEAN PLATELET VOLUME 8.7 fl (7.2-11.7); MONO # 1.2 K/uL (0.0-0.8); NEUT # 9.7 K/uL (1.8-7.0); NEUT % 74.3 % (50.0-75.0); RBC 4.27 Mil/uL (3.80-5.20); RED CELL DISTRIBUTION WIDTH 12.7 % (11.5-14.5)
[2017-09-18 02:30] LABS: ALB/GLOB RATIO 1.2 (1.0-2.1); ALBUMIN 4.6 g/dL (3.5-5.0); ALT/SGPT 21 U/L (9-52); AST/SGOT 24 U/L (14-36); BLOOD UREA NITROGEN 11 mg/dl (7-17); CALCIUM 9.5 mg/dL (8.4-10.2); GFR AFRICAN-AMERICAN > 60; GFR NON-AFRICAN AMERICAN > 60
== END 2017-09-18 03:55 | disposition home or self-care (01) ==
LOC: H.ER 00:30
DX: G43.909 Migraine, unspecified, not intractable, without status migrainosus (principal); F31.9 Bipolar disorder, unspecified
CPT/HCPCS: 80053; 81025; 85025; 96361; 96374; 96375; 99283; J1885; J2765; J7040

== ENCOUNTER 2017-11-17 23:16 | Emergency (ER) | payer OTHER ==
[2017-11-17 23:17] VITALS: BMI 22.3
[2017-11-17 23:34] VITALS: BP 122/69; RESP 16; O2SAT 99
[2017-11-17] MEDS ORDERED: Sodium Chloride 0.9% 1,000 ML IV STA (23:44)
--- NOTE | 2017-11-18 00:26 | ED PDOC ---
HPI: General Adult Time Seen by Provider: 11/17/17 23:41 Chief Complaint (Nursing): Flu-like Symptoms History Per: Patient History/Exam Limitations: no limitations Onset/Duration Of Symptoms: Days Have you had recent travel within the past 21 days to any of the following countries: [place], [place], [place] or [place]?: Yes Additional Complaint(s): Hx of migraines p/w fever since yesterday, states her symptoms started last night with fever, sore throat, progressed to bodyaches, chills, headache. States she took advil and nyquil without significant relief. No vomiting. States her boyfriend was also recently sick. Past Medical History Reviewed: Historical Data, Nursing Documentation, Vital Signs Vital Signs: Last Vital Signs Temp 100.6 F H 11/18/17 01:18 Pulse 130 H 11/17/17 23:31 Resp 16 11/17/17 23:31 BP 122/69 11/17/17 23:31 Pulse Ox 99 11/18/17 00:26 - Medical History PMH: Bipolar Disorder, Migraine Denies: Chronic Kidney Disease - Family History Family History: States: Unknown Family Hx - Home Medications Home Medications: Ambulatory Orders Medication Instructions Recorded Clindamycin [Cleocin] 300 mg PO Q6 #40 cap 01/15/17 predniSONE [predniSONE Tab] 60 mg PO QAM #12 tab 01/15/17 Ondansetron [Zofran] 4 mg PO Q8H #9 tab 08/21/17 Metoclopramide [Reglan] 10 mg PO Q6 PRN #20 tab 09/18/17 Naproxen [Naprosyn] 500 mg PO BID #20 tab 09/18/17 - Allergies Allergies/Adverse Reactions: Allergies Allergy/AdvReac Type Severity Reaction Status Date / Time No Known Allergies Allergy Verified 11/17/17 23:31 Review of Systems ROS Statement: Except As Marked, All Systems Reviewed And Found Negative Constitutional: Positive for: Fever, Chills ENT: Positive for: Throat Pain Physical Exam - Reviewed Nursing Documentation Reviewed: Yes Vital Signs Reviewed: Yes - Physical Exam Appears: Positive for: Well, Non-toxic, No Acute Distress Head Exam: Positive for: ATRAUMATIC, NORMAL INSPECTION, NORMOCEPHALIC Skin: Positive for: Normal Color, Warm, DRY Eye Exam: Positive for: EOMI, Normal appearance, PERRL ENT: Positive for: Normal ENT Inspection Neck: Positive for: Normal, Painless ROM Cardiovascular/Chest: Positive for: Regular Rate, Rhythm Respiratory: Positive for: CNT, Normal Breath Sounds Gastrointestinal/Abdominal: Positive for: Normal Exam, Soft Back: Positive for: Normal Inspection Extremity: Positive for: Normal ROM Neurologic/Psych: Positive for: Alert, Oriented - Laboratory Results Result Diagrams: 11/18/17 00:25 11/18/17 00:25 - ECG O2 Sat by Pulse Oximetry: 99 Pulse Ox Interpretation: Normal Medical Decision Making Medical Decision Makin A/P: Pt. w/ hx of migraines p/w bodyaches, fever, chills, sore throat -exam victorino, vitals significant for fever and tachycardia -will give fluids, toradol -patient likely suffering from flu 200 Patient much improved Fever and HR significantly reduced Will treat empirically with tamiflu Advised plenty of fluids and rest Return precautions discussed Disposition - Clinical Impression Clinical Impression: Influenza-like symptoms - Disposition Referrals: Jim Jaime MD, PhD [Primary Care Provider] - Disposition Time: 01:59 Condition: IMPROVED Instructions: Flu Forms: [employer] [facility] ([place])
[2017-11-18 00:43] LABS: BASO % 0.2 % (0.0-2.0); EOS % 0.1 % (0.0-4.0); HEMOGLOBIN 12.3 g/dL (12.0-16.0); LYMPH # 0.8 K/uL (1.0-4.3); LYMPH % 4.8 % (20.0-40.0); MEAN CELL VOLUME 88.7 fl (81.0-99.0); MEAN CORPUSCULAR HEMOGLOBIN 29.5 pg (27.0-31.0); MEAN CORPUSCULAR HGB CONC 33.2 g/dL (33.0-37.0); MEAN PLATELET VOLUME 8.6 fl (7.2-11.7); MONO # 1.2 K/uL (0.0-0.8); MONO % 6.7 % (0.0-10.0); NEUT # 15.4 K/uL (1.8-7.0); NEUT % 88.2 % (50.0-75.0); PLATELET COUNT 229 K/uL (130-400); RBC 4.18 Mil/uL (3.80-5.20); RED CELL DISTRIBUTION WIDTH 13.5 % (11.5-14.5); WHITE BLOOD COUNT 17.5 K/uL (4.8-10.8)
[2017-11-18 00:53] LABS: BLOOD UREA NITROGEN 12 mg/dl (7-17); CALCIUM 9.4 mg/dL (8.4-10.2); GFR AFRICAN-AMERICAN > 60; GFR NON-AFRICAN AMERICAN > 60
[2017-11-18 01:24] VITALS: TEMP 100.6
[2017-11-18 01:58] LABS: ANISOCYTOSIS SLIGHT; BANDS 3 % (0-2); LYMPHOCYTE 4 % (20-50); MONOCYTE 5 % (0-10); NEUTROPHIL 86 % (42-75); PLATELET ESTIMATE NORMAL (NORMAL); REACTIVE LYMPHOCYTES 2 % (0-0); TOTAL CELLS COUNTED 100
[2017-11-18 01:59] LABS: LARGE PLATELETS PRESENT; OVALOCYTES SLIGHT; STOMATOCYTES SLIGHT
[2017-11-18 02:01] VITALS: PULSE 97
== END 2017-11-18 02:07 | disposition home or self-care (01) ==
LOC: H.ER 23:16 → MERGE 23:16 → H.ER 11-18 02:07
DX: J11.1 Influenza due to unidentified influenza virus with other respiratory manifestations (principal); F31.9 Bipolar disorder, unspecified
CPT/HCPCS: 80048; 83605; 85025; 87070; 87430; 87804; 96374; 99284; J1885; J7040